=== PATIENT | female | born 1955 | race Asian ===

== ENCOUNTER 2023-12-01 07:18 | Day surgery (SDC) | payer OTHER ==
[~2023-12-01] VITALS: Ht 149.9 cm; Wt 64.9 kg
[~2023-12-01 07:18] MED LIST: SODIUM CHLORIDE 0.9% 1,000 ML ONE
[2023-12-01] MEDS ORDERED: BENZOCAINE 20% 50 MCG/SPRAY 57 GM TP ONE (07:19)
[2023-12-01] MEDS ORDERED: LIDOCAINE 4% 50 ML SOLUTION TP ONE (07:19)
[2023-12-01] MEDS ORDERED: LIDOCAINE 2% 11 ML JELLY TP ONE (07:19)
[2023-12-01] MEDS ORDERED: ALBUTEROL SULFATE 2.5 MG/0.5 ML NEB SOLUTION NEB ONE (07:19)
[2023-12-01] MEDS ORDERED: MIDAZOLAM HCL 2 MG/2 ML VIAL ONE (07:27)
[2023-12-01] MEDS ORDERED: FentaNYL CITRATE PF 100 MCG/2 ML VIAL ONE (07:28)
[2023-12-01] MEDS: SODIUM CHLORIDE 0.9% 1,000 ML IV ONE (08:27)
[2023-12-01 09:05] VITALS: PULSE 85; RESP 20; O2SAT 99
[2023-12-01] MEDS ORDERED: MethylPREDNISolone SOD SUCC 125 MG/2 ML VIAL ONE (09:21)
[2023-12-01] MEDS: MethylPREDNISolone SOD SUCC 125 MG/2 ML VIAL IVP ONE (10:17)
== END 2023-12-01 11:00 | disposition home or self-care (01) ==
LOC: SURGERY 07:18 → EDSEX 09:30 → SURGERY 11:00
PROVIDERS: ATTEND Internal Medicine Critical Care Medicine
DX: R05.3 Chronic cough (principal); R04.2 Hemoptysis; J98.09 Other diseases of bronchus, not elsewhere classified; J84.10 Pulmonary fibrosis, unspecified; J98.8 Other specified respiratory disorders; E11.9 Type 2 diabetes mellitus without complications; M54.31 Sciatica, right side; I10 Essential (primary) hypertension; Z85.21 Personal history of malignant neoplasm of larynx; Z79.899 Other long term (current) drug therapy; Z79.84 Long term (current) use of oral hypoglycemic drugs
CPT/HCPCS: 31623; 87206; 87101; 87220; 87070; 88108; 31624; 94640; 71045; 87015; J3010; J2250; J2919; J7030; J7613; Z7610